=== PATIENT | female | born 1995 | race Caucasian/White ===

== ENCOUNTER 2016-09-02 16:17 | Outpatient (CLI) | payer MEDICAID ==
[~2016-09-02 16:17] MED LIST: FERR220S15 PO; IBUP800T25 PO; NITR-58 PO; PERCOCET PO; PREN-39 PO
--- NOTE | 2016-09-02 17:22 | RADRPT ---
PROCEDURE: US evaluation of amniotic fluid volume. CLINICAL INDICATION: Leaking amniotic fluid. TECHNIQUE: Multiple sonographic images of the gravid uterus were obtained utilizing cook-scale reba ging. Sagittal and transverse images were obtained. The images were reviewed on a PACS workstation . BRENDA was measured. COMPARISON: No prior studies are available for comparison. FINDINGS: There is a single live intrauterine . heart rate is 146 beats per minute. Position is cephalic. Placenta is posterior grade II with no abruption or previa. BRENDA is 14.7 cm. (Normal = 5-20 cm.) IMPRESSION: 1. BRENDA is 14.7 cm. RPTAT: QQ .Sachin Barrera MD, MD Date Time Electronically viewed and signed by .Sachin Barrera MD, on 09/02/2016 17:22 .R/
[2016-09-02 18:25] LABS: BASOPHILS % 0.5 % (0.0-2.0); EOSINOPHILS # 0.1 10^3/ul (0.0-0.5); EOSINOPHILS % 0.7 % (0.0-7.0); HEMOGLOBIN 10.1 g/dl (12.0-16.0); LYMPHOCYTES # 1.9 10^3/ul (0.8-2.9); LYMPHOCYTES % 22.8 % (15.0-51.0); MEAN CORPUSCULAR HEMOGLOBIN 30.7 pg (29.0-33.0); MEAN CORPUSCULAR HGB CONC 33.7 g/dl (32.0-37.0); MEAN CORPUSCULAR VOLUME 91.1 fl (82.0-101.0); MEAN PLATELET VOLUME 7.6 fl (7.4-10.4); MONOCYTE # 0.7 10^3/ul (0.3-0.9); MONOCYTES % 8.2 % (0.0-11.0); NEUTROPHIL # 5.7 10^3/ul (1.6-7.5); NEUTROPHILS % 67.8 % (39.0-77.0); PLATELET COUNT 297 10^3/UL (140-440); RED CELL DISTRIBUTION WIDTH 13.5 % (11.5-14.5); UNCORRECTED WBC 8.4 10^3/ul (4.8-10.8); WHITE BLOOD COUNT 8.4 10^3/ul (4.8-10.8)
[2016-09-02 18:34] LABS: CONDITION 1
--- NOTE | 2016-09-02 19:17 | RADRPT ---
PROCEDURE: Ultrasound examination of the pelvis. CLINICAL INDICATION: Patency with cramping. Now for evaluation of cervical length. TECHNIQUE: Limited evaluation of pelvis for evaluation of cervical length. COMPARISON: None. FINDINGS: Cervical length is 42 mm. IMPRESSION: Cervical length is 42 mm. RPTAT: UU Physician Rommel Date Time Electronically viewed and signed by Physician Rommel on 09/02/2016 19:16 RS/
[2016-09-02 19:40] LABS: ADD UMIC YES; URINE BILIRUBIN (Dip) NEGATIVE (NEGATIVE); URINE BLOOD (Dip) NEGATIVE (NEGATIVE); URINE COLOR LT. YELLOW (YELLOW); URINE GLUCOSE (Dip) NEGATIVE (NEGATIVE); URINE KETONES (Dip) NEGATIVE (NEGATIVE); URINE LEUKOCYTE ESTERASE (Dip) 1+ (NEGATIVE); URINE NITRITE (Dip) NEGATIVE (NEGATIVE); URINE TOTAL PROTEIN (Dip) NEGATIVE (NEGATIVE); URINE UROBILINOGEN (Dip) 0.2 E.U./dL (0.1-1.0)
[2016-09-02 19:58] LABS: BACTERIA,URINE FEW; SQUAMOUS EPITHELIAL CELL,UR MODERATE; URINE RBCS NONE SEEN /HPF (0)
[2016-09-02] MEDS ORDERED: TERBUTALINE 1 MG/ML INJ SC ONE (20:30)
--- NOTE | 2016-09-02 21:30 | PN ---
Date/Time of Note Date/Time of Note DATE: 09/02/16 TIME: 21:25 OB Subjective Subjective Subjective 21 yo P1 @ 28 wks, r/o PPROM, r/o labor OB Objective Objective Objective VS WNL Abdomen- gravid,n/t SVE- l/c/p FHT- Cat I [place]- irreg ctx, stopped after terbutaline Abdomen: WNL Cervical Dilatation: None Effacement: 0% Station: -3 Accelerations: Accelerations Present Decelerations: No Decelerations Varibility: Moderate Contractions on Admission: None Intensity: Mild OB Assessment/Plan Other Assessment: patient came for r/o SROM, r/o PTL - reassuring status - not SROM, not in PTL Other plan: d/c home f/u with primary OB CARLA WATTS MD Sep 02, 2016 21:30
== END 2016-09-02 21:26 | disposition home or self-care (01) ==
LOC: OBT 16:17 → L-D 16:18 → OBT 21:26
PROVIDERS: ATTEND Obstetrics & Gynecology
DX: O26.893 Other specified pregnancy related conditions, third trimester (principal); O62.9 Abnormality of forces of labor, unspecified; Z3A.28 28 weeks gestation of pregnancy
CPT/HCPCS: 36415; 76815; 76817; 81001; 84112; 85025; 96372; J3105; Z7500; 81003; G0463

== ENCOUNTER 2016-11-02 09:43 | Outpatient (CLI) | payer MEDICAID ==
[~2016-11-02] VITALS: Ht 167.6 cm; Wt 74.6 kg
[~2016-11-02 09:43] MED LIST changes: -IBUP800T25 PO; -PERCOCET PO
[2016-11-02 09:45] VITALS: Ht 167.6 cm; Wt 74.6 kg
[2016-11-02 09:57] VITALS: BP 112/63; PULSE 72; RESP 18
[2016-11-02] MEDS ORDERED: LACTATED RINGER'S 1,000 ML IV ONE (10:30)
[2016-11-02] MEDS: TERBUTALINE 1 MG/ML INJ SC PRN ×2 (10:36→11:35)
[2016-11-02] MEDS ORDERED: LACTATED RINGER'S 1,000 ML IV SCH (12:00)
--- NOTE | 2016-11-02 14:14 | TRIAGE ---
OB Triage Datetime Report Generated by CPN: 11/02/2016 14:14 Datetime: 11/02/2016 13:30 Labor Evaluation Frequency: 2-10 Monitor Mode: External Duration (sec)2399: 40-70 Quality: Mild Pattern: Normal: <= 5 Contractions in 10 Minutes Resting Tone [place]: Relaxed Contraction Comments: Pt denies feeling pain with contractions, only feeling "tightening" Heart Rate FHR Baseline Rate: 150 Monitor Mode: External US FHR Baseline Changes: No Baseline Change Variability: Minimal - Undetectable to <=5 bpm Accelerations: 15X15 Decelerations: None Category: Category II Datetime: 11/02/2016 12:43 Stage of : OB Triage Labor Evaluation Frequency: 3 Monitor Mode: External Duration (sec)2399: 40-50 Quality: Mild Pattern: Normal: <= 5 Contractions in 10 Minutes Resting Tone [place]: Relaxed Heart Rate FHR Baseline Rate: 140 Monitor Mode: External US Variability: Moderate 6-25 bpm Accelerations: 15X15 Decelerations: None Category: Category I Pain Assessment Pain Scale: 3 Pain Presence: Intermittent Pain Type: Cramping Pain Location: Back Pain Goal: 2 Pain Relief Measures: Comfort Measures Datetime: 11/02/2016 11:20 Labor Evaluation Frequency: 4-6 Monitor Mode: External Duration (sec)2399: 50-80 Quality: Mild Pattern: Normal: <= 5 Contractions in 10 Minutes Resting Tone [place]: Relaxed Heart Rate FHR Baseline Rate: 140 Monitor Mode: External US FHR Baseline Changes: No Baseline Change Variability: Moderate 6-25 bpm Accelerations: 15X15 Decelerations: None Category: Category I Pain Presence: None/Denies Pain Assessment Comments: Pt denies feeling pain with contractions, states she only feels "tighten ing" Datetime: 11/02/2016 11:12 Contraction Comments: Pt's UC difficult to see on monitor. Pt given button to "nicola" when she feel s tightening/contractions. Datetime: 11/02/2016 10:20 Labor Evaluation Frequency: 3-6 Monitor Mode: External Duration (sec)2399: 50-60 Quality: Mild Pattern: Normal: <= 5 Contractions in 10 Minutes Resting Tone [place]: Relaxed Heart Rate FHR Baseline Rate: 140 Monitor Mode: External US FHR Baseline Changes: No Baseline Change Variability: Moderate 6-25 bpm Accelerations: 15X15 Decelerations: None Category: Category I Pain Presence: Intermittent Pain Type: Ache Pain Location: Abdomen Pain Relief Measures: Comfort Measures Pain Assessment Comments: Pt denies feeling pain with contractions, only "tightening" Datetime: 11/02/2016 10:07 Vaginal Exam Dilatation (cms): 0.0 Effacement (%): 0 Station: -3 Exam By: Jeanne RN Datetime: 11/02/2016 09:55 Time of Arrival: 11/02/2016 09:40 EGA: 34.6 Arrived By: Ambulatory Arrived From: Office Chief Complaint: UC Movement: Present Contractions: Denies/Absent Time Contractions Began: 10/31/2016 16:00 Rupture of Membranes: Denies Vaginal Bleeding: Normal Show Vaginal Discharge: Denies Recent Sexual Intercouse: Denies Abdominal Trauma: Not Applicable Patient Complaints: Contractions Time Provider Notified: 11/02/2016 09:52 Provider Notified: Kristin Initial Plan: NST, IV hydration, Terbutaline 0.25mg subQ, VE (Annotations: Data stored by N on b alf of user) Datetime: 11/02/2016 09:50 Assessment Type: Triage Maternal Assessment Level of Consciousness: Fully Conscious DTR's/Clonus: DTRs 2+; No Clonus Headache: Denies Blurred Vision: No Respiratory Effort: Unlabored; Regular Rhythm; Equal Expansion Breath Sounds, Left: Clear and Equal Breath Sounds, Right: Clear and Equal Nausea/Vomiting: Denies RUQ Epigastric Pain: Denies Lower Extremities Edema: None Degree: None Upper Extremities Edema: None Degree: None Facial Edema: None Fall Risk Assessment History of Falling: (0) No Secondary Diagnosis: (0) No Ambulatory Aid: (0) Bedrest/Nurse Assist IV Therapy: (0) No Gait: (0) Normal/Bedrest/Immobile Mental Status: (0) Oriented to Own Ability Fall Score: 0 Fall Risk Score Definition: No Risk: No action required Datetime: 11/02/2016 09:49 Stage of : OB Triage Datetime: 09/02/2016 21:10 Labor Evaluation Frequency: 0 Monitor Mode: External Resting Tone [place]: Relaxed Heart Rate FHR Baseline Rate: 150 Monitor Mode: External US FHR Baseline Changes: No Baseline Change Variability: Moderate 6-25 bpm Accelerations: 15X15 Decelerations: Variable Category: Category I Comments: Appropriate for ga Datetime: 09/02/2016 21:09 Vaginal Exam Dilatation (cms): 0.0 Effacement (%): 0 Station: -3 Exam By: M ROTH Datetime: 09/02/2016 20:30 Stage of : OB Triage Labor Evaluation Frequency: X7 Monitor Mode: External Duration (sec)2399: 40-70 Quality: Mild Resting Tone [place]: Relaxed Datetime: 09/02/2016 20:15 Monitor Mode: External Monitor Mode: External US Datetime: 09/02/2016 20:11 Stage of : OB Triage Datetime: 09/02/2016 20:07 Membrane Status: Intact Datetime: 09/02/2016 20:05 Stage of : OB Triage Datetime: 09/02/2016 19:30 Labor Evaluation Frequency: 2/30 Monitor Mode: External Quality: Mild Pattern: Normal: <= 5 Contractions in 10 Minutes Resting Tone [place]: Relaxed Heart Rate FHR Baseline Rate: 135 Monitor Mode: External US FHR Baseline Changes: No Baseline Change Variability: Moderate 6-25 bpm Accelerations: 15X15 Decelerations: None Category: Category I Datetime: 09/02/2016 18:30 Stage of : OB Triage Labor Evaluation Frequency: x3 Monitor Mode: External Duration (sec)2399: 40-60 Quality: Mild Resting Tone [place]: Relaxed Heart Rate FHR Baseline Rate: 140 Monitor Mode: External US FHR Baseline Changes: No Baseline Change Variability: Moderate 6-25 bpm Accelerations: 15X15 Decelerations: Variable Category: Category I Datetime: 09/02/2016 18:29 Contraction Comments: abdomen soft to palpation. Pt denies feeling any cramping, ucs Datetime: 09/02/2016 18:26 Stage of : OB Triage Datetime: 09/02/2016 18:15 Stage of : OB Triage Datetime: 09/02/2016 17:53 Stage of : OB Triage Datetime: 09/02/2016 17:48 Stage of : OB Triage Datetime: 09/02/2016 17:47 Stage of : OB Triage Datetime: 09/02/2016 17:30 Stage of : OB Triage Labor Evaluation Frequency: x2 Monitor Mode: External Duration (sec)2399: 40-50 Quality: Mild Resting Tone [place]: Relaxed Heart Rate FHR Baseline Rate: 140 Monitor Mode: External US Variability: Moderate 6-25 bpm Accelerations: 15X15 Decelerations: Variable Category: Category I Comments: Appropriate for ga Datetime: 09/02/2016 17:05 Monitor Mode: External Contraction Comments: toco changed Datetime: 09/02/2016 16:58 Stage of : OB Triage Datetime: 09/02/2016 16:57 Stage of : OB Triage Datetime: 09/02/2016 16:40 Assessment Type: Triage Maternal Assessment Level of Consciousness: Fully Conscious DTR's/Clonus: DTRs 1+; No Clonus Headache: Denies Blurred Vision: No Respiratory Effort: Unlabored Breath Sounds, Left: Clear and Equal Breath Sounds, Right: Clear and Equal Nausea/Vomiting: Denies RUQ Epigastric Pain: Denies Lower Extremities Edema: None Degree: None Upper Extremities Edema: None Degree: None Facial Edema: None Fall Risk Assessment History of Falling: (0) No Secondary Diagnosis: (15) Yes (Annotations: CS X 1 UTI on macrobid) Ambulatory Aid: (0) Bedrest/Nurse Assist IV Therapy: (0) No Gait: (0) Normal/Bedrest/Immobile Mental Status: (0) Oriented to Own Ability Fall Score: 15 Fall Risk Score Definition: No Risk: No action required Datetime: 09/02/2016 16:37 Time of Arrival: 09/02/2016 16:15 EGA: 26.1 Movement: Present Contractions: Denies/Absent Rupture of Membranes: Unsure Vaginal Bleeding: None Vaginal Discharge: Present Recent Sexual Intercouse: Denies Abdominal Trauma: Not Applicable Patient Complaints: Other Additional Patient Complaints: Pt states she had a gush of fluid yesterday followed by some mucous discharge Provider Notified: KRISTIN Initial Plan: VS, EFM, ROM+, BRENDA, CL, CBC, VE, UA Datetime: 09/02/2016 16:32 Stage of : OB Triage Monitor Mode: External Datetime: 09/02/2016 16:31 Monitor Mode: External Contraction Comments: 2nd toco not working Datetime: 09/02/2016 16:30 Monitor Mode: External Contraction Comments: not working, will change Datetime: 09/02/2016 16:27 Stage of : OB Triage Monitor Mode: External US
--- NOTE | 2016-11-02 14:58 | CONS ---
Date/Time of Note Date/Time of Note DATE: 11/02/16 TIME: 14:48 Consultation Date/Type/Reason Admit Date/Time October 29, 2016 OB triage consult Initial Consult Date This patient is a 21 years old 4 para 1 2 living 1 with EDC of 12/08/2016 She is now 34 weeks and 6 days. She was transferred to triage area due to the fact that she had the contractions prematurely On examination her ear nose throat, neck were normal Chest was clear to auscultation and percussion Heart: normal sinus,no murmur. On examination of the abdomen fetus appears to be in vertex presentation she was having contractions every 5-6 minutes No CVA tenderness. Vital signs: As I mentioned her vital signs were stable normal her blood pressure was 112/63 pulse rate 70 respiration 18 temperature was 97.723 Current Medications Medications (Trade) Dose Ordered Sig/Samuel Route PRN Reason Start Time Stop Time Status Last Admin Dose Admin Lactated Ringer's (Lr) 1,000 ml @ 1,000 mls/hr Q1H ONCE IV 11/02/16 10:30 11/02/16 11:29 DC 11/02/16 10:22 1,000 MLS/HR Terbutaline Sulfate 0.25 mg 0.25 mg ONCE PRN SC PAIN 11/02/16 10:30 11/02/16 14:12 DC 11/02/16 11:35 0.25 MG Lactated Ringer's (Lr) 1,000 ml @ 125 mls/hr Q8H IV 11/02/16 12:00 11/02/16 14:12 DC 11/02/16 12:06 125 MLS/HR On pelvic examination cervix was closed thick and the head at -3 station Management : IV hydration was given. Her contractions gradually came under control and stopped She was on Procardia 20 mg 3 times daily which was prescribed for her. Eventually when her contractions stop altogether she was discharged home with precautions to rest and will go back to her clinic for follow-up . On her her record mentioned that she has been taking Macrobid 1 a day due to history of urinary tract infection throughout the . Current Medications Medications (Trade) Dose Ordered Sig/Samuel Route PRN Reason Start Time Stop Time Status Last Admin Dose Admin Lactated Ringer's (Lr) 1,000 ml @ 1,000 mls/hr Q1H ONCE IV 11/02/16 10:30 11/02/16 11:29 DC 11/02/16 10:22 Terbutaline Sulfate 0.25 mg 0.25 mg ONCE PRN SC PAIN 11/02/16 10:30 11/02/16 14:12 DC 11/02/16 11:35 Lactated Ringer's (Lr) 1,000 ml @ 125 mls/hr Q8H IV 11/02/16 12:00 11/02/16 14:12 DC 11/02/16 12:06 Exam/Review of Systems Vital Signs Vitals Vital Signs Date Time Temp Pulse Resp B/P Pulse Ox O2 Delivery O2 Flow Rate FiO2 11/02/16 09:57 97.7 72 18 112/63 Room Air EDEN COLE MD Nov 02, 2016 14:58
== END 2016-11-02 14:10 | disposition home or self-care (01) ==
LOC: OBT 09:43 → L-D 09:44 → OBT 14:10
PROVIDERS: ATTEND Obstetrics & Gynecology
DX: O62.9 Abnormality of forces of labor, unspecified (principal); Z3A.34 34 weeks gestation of pregnancy
CPT/HCPCS: 36415; 96360; 96361; 96372; J3105; J7120; Z7500; G0463